=== PATIENT | female | born 1990 | race Two or more races ===

== ENCOUNTER 2018-02-11 21:01 | Emergency (ER) | payer MEDICAID ==
[~2018-02-11] VITALS: Ht 162.6 cm; Wt 54.4 kg
[2018-02-11 21:01] VITALS: BP 136/72
[~2018-02-11 21:01] MED LIST: IBUPROFEN600 MG ORAL; NKM; UNOBMED
[2018-02-11] MEDS ORDERED: Haloperidol 5mg/ml Inj IM ONE (21:30)
--- NOTE | 2018-02-12 00:58 | Emergency Room Report ---
History of Present Illness General Chief Complaint: Behavioral Complaint Source: EMS Present Illness HPI This is approximately 32-year-old female brought in as a Crystal Valenzuela. She has unknown psychiatric history. She was running in traffic agitated. She is brought here for evaluation. Patient refused to give any history. She occasionally screaming and talking about things and people underneath her stretcher. Unknown drug use. Does appeared that she's been in several hospitals because she has IV veloz and tape veloz on her arms. Allergies: Coded Allergies: UNABLE TO ASSESS (Unverified , 02/11/18) Patient History Past Medical History: see triage record, old chart reviewed Past Surgical History: unable to obtain Family History: unable to obtain Last Menstrual Period: unknown Immunizations: other Reviewed Nursing Documentation: PMH: Agreed; PSxH: Agreed Nursing Documentation-PMH History Of Psychiatric Problem: Yes Review of Systems All Other Systems: limited - Because patient agitation and noncooperation Physical Exam Vital Signs Date Time Temp Pulse Resp B/P (MAP) Pulse Ox O2 Delivery O2 Flow Rate FiO2 02/11/18 20:53 98.4 84 16 136/72 99 Room Air Sp02 EP Interpretation: reviewed, normal General Appearance: alert/responsive, no apparent distress, non-toxic, other - disheveled Head: normocephalic, atraumatic Eyes: PERRL, EOMI ENT: oropharynx normal Neck: supple/symm/no masses Respiratory: effort normal, no rhonchi, no wheezing Cardiovascular: no murmur, gallop, rub Gastrointestinal: non-tender, no mass, non-distended, no rebound/guarding, normal bowel sounds Musculoskeletal: gait & station normal Neurologic: oriented x3, sensory intact, motor strength/tone normal Skin: no rash, normal palpation Medical Decision Making Diagnostic Impression: Primary Impression: Psychosis Qualified Codes: F29 - Unspecified psychosis not due to a substance or known physiological condition ER Course Patient presents with acute psychosis. This may be secondary to underlying psychiatric history versus substance abuse or combination of both. She is much calmer after dose of Haldol. She slept through the night. Will reassess in the morning. Patient woke up around 3 AM. She is calm now. Walking to the bathroom without any problem. Able to give her name and date of . Right now she has no hallucination or delusion. No suicidal thoughts or homicidal thought. No criteria for 5150. This patient is a chronic risk of self injury due to poor impulse control, limited coping skills, and judgment intermittently impaired by intoxication. I believe that the available clinical evidence to suggest that these characteristics derived primarily from personality disorder and are likely very stable over time. Hospitalization would likely attenuate risk of self-harm only during fdc period, without lasting risk reduction. Serious self-harm , while possible, would likely be inadvertent, and because of impulsivity, and foreseeable. For these reasons, I do not believe hospitalization would provide meaningful reduction in risk of self-harm. Last Vital Signs Date Time Temp Pulse Resp B/P (MAP) Pulse Ox O2 Delivery O2 Flow Rate FiO2 02/11/18 20:53 98.4 84 16 136/72 99 Room Air Status: improved Disposition: HOME, SELF-CARE Condition: Stable Referrals: NOT CHOSEN IPA/,REFERRING (PCP) Patient Instructions: Self-Destructive Behavior Additional Instructions: Abstain from drugs and alcohol. Follow-up with your DrOswaldo in mental health within a week. Return if worse. Dudley Stacy MD Feb 12, 2018 00:58
[2018-02-12 02:47] VITALS: BP 107/68
[2018-02-12 05:08] VITALS: BP 107/68
== END 2018-02-12 05:08 | disposition home or self-care (01) ==
LOC: EDBD 21:01 → MERGE 21:59 → EDBD 21:59 → EMR 21:59
DX: F29 Unspecified psychosis not due to a substance or known physiological condition (principal)
CPT/HCPCS: 96372; 99283; J1630